=== PATIENT | female | born 1975 | race Caucasian/White ===

== ENCOUNTER → 2016-08-15 | Outpatient (REF) | payer OTHER ==
[2016-08-15 16:38] LABS: ANION GAP 8 MEQ/L (8-16); BLOOD UREA NITROGEN 9 MG/DL (7-18); CALCIUM LEVEL 8.3 MG/DL (8.5-10.1); CARBON DIOXIDE LEVEL 26 MEQ/L (21-32); CHLORIDE LEVEL 103 MEQ/L (98-107); CREATININE FOR GFR 0.78 MG/DL (0.55-1.02); GLOMERULAR FILTRATION RATE > 60.0 (>58); GLUCOSE, FASTING 104 MG/DL (70-105); POTASSIUM SERUM 3.3 MEQ/L (3.5-5.1); SODIUM LEVEL 137 MEQ/L (136-145)
== END ==
LOC: M SFHCADAM 08:41
PROVIDERS: ATTEND Physician Assistant
DX: I10 Essential (primary) hypertension (principal)

== ENCOUNTER → 2016-08-25 | Outpatient (CLI) | payer OTHER ==
--- NOTE | 2016-08-25 13:48 | REP ---
ULTRASOUND LEFT POSTERIOR CHEST WALL: Real-time sonographic evaluation of the left posterior chest wall performed at the site of the reported palpable abnormality. A dominant heterogeneous solid mass is seen measuring 7.9 x 4.5 x 5.1 cm. Another adjacent heterogeneous mass measures 4.2 x 1.8 x 3.5 cm. Findings are nonspecific. Recommend MRI with and without contrast for further evaluation. Signed by Mikal Wagoner MD 08/25/2016 05:39 P
== END ==
LOC: M RAD 11:17
PROVIDERS: ATTEND Surgery
DX: D17.1 Benign lipomatous neoplasm of skin and subcutaneous tissue of trunk (principal)

== ENCOUNTER → 2016-09-06 | Outpatient (CLI) | payer OTHER | LOC: M RAD 08:17 | PROVIDERS: ATTEND Surgery | DX: D48.5 Neoplasm of uncertain behavior of skin (principal) ==

== ENCOUNTER → 2016-09-13 | Outpatient (CLI) | payer OTHER | LOC: M PLARAD 08:06 | PROVIDERS: ATTEND Surgery | DX: D48.5 Neoplasm of uncertain behavior of skin (principal) ==

== ENCOUNTER → 2016-11-21 | Outpatient (CLI) | payer OTHER ==
[2016-11-21 18:34] LABS: MEAN CORPUSCULAR HEMOGLOBIN 29.6 pg (27.0-33.0); MEAN CORPUSCULAR HGB CONC 33.4 g/dl (32.0-36.5); MEAN CORPUSCULAR VOLUME 88.6 fl (80.0-96.0); RED CELL DISTRIBUTION WIDTH 14.5 % (11.5-14.5); WHITE BLOOD COUNT 9.8 K/mm3 (4.0-10.0)
[2016-11-21 18:51] LABS: ALBUMIN 3.9 GM/DL (3.2-5.2); ALBUMIN/GLOBULIN RATIO 1.05 (1.00-1.93); ALKALINE PHOSPHATASE 95 U/L (45-117); ALT/SGPT 22 U/L (12-78); ANION GAP 8 MEQ/L (8-16); AST/SGOT 13 U/L (15-37); BILIRUBIN,TOTAL 0.5 MG/DL (0.2-1.0); BLOOD UREA NITROGEN 9 MG/DL (7-18); CALCIUM LEVEL 8.6 MG/DL (8.5-10.1); CARBON DIOXIDE LEVEL 25 MEQ/L (21-32); CHLORIDE LEVEL 104 MEQ/L (98-107); CHOLESTEROL LEVEL 141 MG/DL (<200); CREATININE FOR GFR 0.88 MG/DL (0.55-1.02); FREE T4 1.27 NG/DL (0.76-1.46); GLOMERULAR FILTRATION RATE > 60.0 (>58); GLUCOSE, FASTING 106 MG/DL (70-105); MAGNESIUM LEVEL 2.1 MG/DL (1.8-2.4); POTASSIUM SERUM 3.5 MEQ/L (3.5-5.1); SODIUM LEVEL 137 MEQ/L (136-145); TOTAL PROTEIN 7.6 GM/DL (6.4-8.2); TRIGLYCERIDES LEVEL 82 MG/DL (<150)
== END ==
LOC: M ADAMS 09:03
PROVIDERS: ATTEND Physician Assistant
DX: I10 Essential (primary) hypertension (principal); R94.6 Abnormal results of thyroid function studies; E55.9 Vitamin D deficiency, unspecified; E87.6 Hypokalemia

== ENCOUNTER → 2016-11-25 | Outpatient (CLI) | payer OTHER ==
[~2016-11-25] MED LIST: ISOVUE-370 76% 100ML VIAL (Q9967) As Ordered ONE
== END ==
LOC: M RAD 07:50
PROVIDERS: ATTEND Surgery
DX: D48.5 Neoplasm of uncertain behavior of skin (principal)

== ENCOUNTER → 2017-01-06 | Outpatient (REF) | payer OTHER, MEDICAID | LOC: M LAB REF 17:16 | PROVIDERS: ATTEND Surgery | DX: D48.5 Neoplasm of uncertain behavior of skin (principal) ==

== ENCOUNTER → 2017-01-27 | Outpatient (CLI) | payer OTHER | LOC: M RAD 07:56 | PROVIDERS: ATTEND Surgery | DX: D48.5 Neoplasm of uncertain behavior of skin (principal); Z53.9 Procedure and treatment not carried out, unspecified reason ==

== ENCOUNTER → 2017-02-02 | Outpatient (CLI) | payer OTHER ==
--- NOTE | 2017-02-03 07:18 | REP ---
Clinical: Subcutaneous/skin mass. Technique: Axial noncontrast images from the thoracic inlet to the upper abdomen with coronal and sagittal re-formations. Findings: A large, elongated mass lesion is identified in the subcutaneous tissue of the posterior left back / paraspinous region measuring 26 cm in craniocaudal length and 9.9 x 4.7 cm maximal transverse and AP diameter. Lesion is almost entirely made up of adipose tissue with scattered septations and small encased rim calcified components and is most compatible with lipoma. The surrounding adjacent subcutaneous tissues are relatively normal and without significant infiltration and no evidence for adenopathy. The bilateral lung bradshaw are well-aerated, symmetric and clear. No consolidation, significant nodule or mass lesion identified. No pleural effusion/reaction or pneumothorax. Tracheobronchial tree is patent. Mediastinum demonstrates normal thoracic aorta and heart/pericardium. No significant axillary, hilar, or mediastinal adenopathy. Musculoskeletal structures are intact and normal. Upper abdomen demonstrates normal bilateral adrenal glands. Impression: 1. 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 Lesion appears well demarcated without surrounding infiltration or adenopathy in the adjacent subcutaneous tissues. 2. Remainder of the noncontrast chest CT appears normal. Signed by Victorino Mansfield MD 02/02/2017 10:07 A
== END ==
LOC: M RAD 09:38
PROVIDERS: ATTEND Surgery
DX: D48.5 Neoplasm of uncertain behavior of skin (principal)

== ENCOUNTER → 2017-07-31 | Outpatient (CLI) | payer OTHER, MEDICAID ==
[2017-07-31 17:15] LABS: BASO % 0.4 % (0.0-1.0); EOS # 0.1 10^3/uL (0.0-0.50); EOS % 1.7 % (0.0-3.0); HEMATOCRIT 36.7 % (36.0-47.0); HEMOGLOBIN 12.3 g/dl (12.0-16.0); IMMATURE GRANULOCYTE % 0.4 % (0-3.0); LYMPH # 2.2 10^3/uL (1.5-4.5); LYMPH % 25.7 % (24.0-44.0); MEAN CORPUSCULAR HEMOGLOBIN 30.6 pg (27.0-33.0); MEAN CORPUSCULAR HGB CONC 33.5 g/dl (32.0-36.5); MEAN CORPUSCULAR VOLUME 91.3 fl (80.0-96.0); MONO # 0.5 10^3/uL (0.0-0.8); MONO % 5.7 % (0.0-5.0); NEUTROPHILS # 5.6 10^3/uL (1.8-7.7); NEUTROPHILS % 66.1 % (36.0-66.0); PLATELET COUNT, AUTOMATED 257 10^3/uL (150-450); RED BLOOD COUNT 4.02 10^6/uL (4.00-5.40); WHITE BLOOD COUNT 8.4 10^3/uL (4.0-10.0)
[2017-07-31 17:29] LABS: ANION GAP 8 MEQ/L (8-16); BLOOD UREA NITROGEN 12 MG/DL (7-18); CALCIUM LEVEL 9.3 MG/DL (8.5-10.1); CARBON DIOXIDE LEVEL 26 MEQ/L (21-32); CHLORIDE LEVEL 103 MEQ/L (98-107); CREATININE FOR GFR 0.78 MG/DL (0.55-1.30); GLOMERULAR FILTRATION RATE > 60.0 (>58); GLUCOSE, FASTING 104 MG/DL (70-100); POTASSIUM SERUM 3.4 MEQ/L (3.5-5.1); SODIUM LEVEL 137 MEQ/L (136-145)
== END ==
LOC: M ADAMS 08:57
DX: R22.2 Localized swelling, mass and lump, trunk (principal); F40.01 Agoraphobia with panic disorder
CPT/HCPCS: 82088

== ENCOUNTER → 2017-08-01 | Outpatient (REF) | payer OTHER ==
[2017-08-01 13:35] LABS: ALBUMIN/GLOBULIN RATIO 1.21 (1.00-1.93); ALKALINE PHOSPHATASE 86 U/L (45-117); ALT/SGPT 17 U/L (12-78); ANION GAP 9 MEQ/L (8-16); AST/SGOT 10 U/L (7-37); BILIRUBIN,TOTAL 0.4 MG/DL (0.2-1.0); BLOOD UREA NITROGEN 12 MG/DL (7-18); CALCIUM LEVEL 8.8 MG/DL (8.5-10.1); CARBON DIOXIDE LEVEL 26 MEQ/L (21-32); CHLORIDE LEVEL 102 MEQ/L (98-107); CHOLESTEROL LEVEL 128 MG/DL (<200); CHOLESTEROL RISK RATIO 3.121 (<5); CREATININE FOR GFR 0.82 MG/DL (0.55-1.30); GLOMERULAR FILTRATION RATE > 60.0 (>58); GLUCOSE, FASTING 98 MG/DL (70-100); HDL CHOLESTEROL 41 MG/DL (>40); LDL CHOLESTEROL 70.2 MG/DL (<100); MAGNESIUM LEVEL 2.3 MG/DL (1.8-2.4); NON-HDL-C 87 MG/DL; POTASSIUM SERUM 3.4 MEQ/L (3.5-5.1); SODIUM LEVEL 137 MEQ/L (136-145); TOTAL PROTEIN 7.3 GM/DL (6.4-8.2); TRIGLYCERIDES LEVEL 84 MG/DL (<150)
== END ==
LOC: M SFHCADAM 08:03
DX: E87.6 Hypokalemia (principal); I11.9 Hypertensive heart disease without heart failure; R94.6 Abnormal results of thyroid function studies

== ENCOUNTER → 2017-08-01 | Outpatient (REF) | payer OTHER ==
[2017-08-01 13:13] LABS: INR 1.01; PROTHROMBIN TIME 13.4 SECONDS (12.4-14.5)
== END ==
LOC: M LABDRWAD 12:18
DX: R22.2 Localized swelling, mass and lump, trunk (principal); F40.01 Agoraphobia with panic disorder; E87.6 Hypokalemia; I11.9 Hypertensive heart disease without heart failure; R94.6 Abnormal results of thyroid function studies
CPT/HCPCS: 84244

== ENCOUNTER → 2017-08-05 | Outpatient (CLI) | payer OTHER ==
[2017-08-10 00:06] LABS: DOPAMINE PLASMA <30 pg/mL (0-48); EPINEPHRINE PLASMA 350 pg/mL (0-62); NOREPINEPHRINE PLASMA 808 pg/mL (0-874)
== END ==
LOC: M LAB 08:01
DX: F40.01 Agoraphobia with panic disorder (principal); R22.2 Localized swelling, mass and lump, trunk
CPT/HCPCS: 36415

== ENCOUNTER → 2017-08-08 | Outpatient (REF) | payer OTHER | LOC: M LAB REF 10:23 | DX: R22.2 Localized swelling, mass and lump, trunk (principal); F40.01 Agoraphobia with panic disorder | CPT/HCPCS: 82384 ==

== ENCOUNTER → 2017-08-17 | Outpatient (CLI) | payer OTHER, MEDICAID | LOC: M LAB 08:01 | DX: I10 Essential (primary) hypertension (principal) ==

== ENCOUNTER → 2017-08-18 | Outpatient (CLI) | payer OTHER, MEDICAID ==
[2017-08-24 00:06] LABS: METANEPHRINE PLASMA 92 pg/mL (0-62); NORMETANEPHRINE PLASMA 171 pg/mL (0-145)
== END ==
LOC: M LAB 06:41
DX: I10 Essential (primary) hypertension (principal)
CPT/HCPCS: 83835

== ENCOUNTER → 2017-09-11 | Outpatient (REF) | payer OTHER ==
[2017-09-11 18:00] LABS: ANION GAP 8 MEQ/L (8-16); BLOOD UREA NITROGEN 12 MG/DL (7-18); CALCIUM LEVEL 8.6 MG/DL (8.5-10.1); CARBON DIOXIDE LEVEL 26 MEQ/L (21-32); CHLORIDE LEVEL 106 MEQ/L (98-107); CREATININE FOR GFR 0.77 MG/DL (0.55-1.30); FREE T4 1.13 NG/DL (0.76-1.46); GLOMERULAR FILTRATION RATE > 60.0 (>58); GLUCOSE, FASTING 102 MG/DL (70-100); POTASSIUM SERUM 3.9 MEQ/L (3.5-5.1); SODIUM LEVEL 140 MEQ/L (136-145)
[2017-09-11 18:31] LABS: CREATININE, URINE 67.8 MG/DL; MALB URINE SIEMENS 6.7 MG/L; MAU/CREAT RATIO 9.8 MCG/MG (0.0-30.0)
== END ==
LOC: M SFHCADAM 08:18
DX: E87.6 Hypokalemia (principal); I11.9 Hypertensive heart disease without heart failure

== ENCOUNTER → 2017-09-27 | Outpatient (CLI) | payer OTHER | LOC: M RAD 10:59 | DX: R22.2 Localized swelling, mass and lump, trunk (principal) ==

== ENCOUNTER → 2017-10-03 | Outpatient (CLI) | payer OTHER | LOC: M RAD 16:05 | DX: R22.2 Localized swelling, mass and lump, trunk (principal); F40.01 Agoraphobia with panic disorder | CPT/HCPCS: 71250 ==

== ENCOUNTER → 2017-10-22 | Outpatient (CLI) | payer OTHER, MEDICAID ==
[2017-10-22 17:59] LABS: FREE T4 1.16 NG/DL (0.76-1.46)
[2017-10-24 10:41] LABS: THYROID PEROXIDASE ANTIBODY < 28.0 U/ML (<60.0)
== END ==
LOC: M ADAMS 08:23
DX: I10 Essential (primary) hypertension (principal); E04.0 Nontoxic diffuse goiter
CPT/HCPCS: 84443

== ENCOUNTER → 2017-12-04 | Outpatient (REF) | payer OTHER, MEDICAID ==
[2017-12-04 17:20] LABS: ANION GAP 9 MEQ/L (8-16); BLOOD UREA NITROGEN 12 MG/DL (7-18); CARBON DIOXIDE LEVEL 27 MEQ/L (21-32); CHLORIDE LEVEL 101 MEQ/L (98-107); CREATININE FOR GFR 0.78 MG/DL (0.55-1.30); GLOMERULAR FILTRATION RATE > 60.0 (>58); GLUCOSE, FASTING 94 MG/DL (70-100); POTASSIUM SERUM 3.8 MEQ/L (3.5-5.1); SODIUM LEVEL 137 MEQ/L (136-145)
[2017-12-04 17:34] LABS: CREATININE, URINE 59.6 MG/DL; MALB URINE SIEMENS 5.7 MG/L; MAU/CREAT RATIO 9.5 MCG/MG (0.0-30.0)
== END ==
LOC: M LAB REF 09:31
DX: I10 Essential (primary) hypertension (principal)

== ENCOUNTER → 2017-12-05 | Outpatient (CLI) | payer OTHER | LOC: M LAB 06:40 | DX: I10 Essential (primary) hypertension (principal) | CPT/HCPCS: 84244 ==

== ENCOUNTER → 2018-01-04 | Outpatient (REF) | payer OTHER, MEDICAID ==
[2018-01-09 14:19] LABS: CORTISOL SALIVARY 0.024 ug/dL (.)
== END ==
LOC: M LAB REF 09:15
DX: I10 Essential (primary) hypertension (principal)

== ENCOUNTER → 2018-02-15 | Outpatient (CLI) | payer OTHER, MEDICAID | LOC: M ADAMS 14:21 | DX: S60.221A Contusion of right hand, initial encounter (principal); X58.XXXA Exposure to other specified factors, initial encounter; Y92.9 Unspecified place or not applicable | CPT/HCPCS: 73130 ==

== ENCOUNTER → 2018-05-11 | Outpatient (CLI) | payer MEDICARE, OTHER ==
[2018-05-11 08:29] LABS: FREE T4 1.29 NG/DL (0.76-1.46); THYROID STIMULATING HORMONE 4.46 uIU/ML (0.358-3.740)
[2018-05-19 08:06] LABS: METANEPHRINE PLASMA 77 pg/mL (0-62); NORMETANEPHRINE PLASMA 111 pg/mL (0-145)
== END ==
LOC: M LAB 07:11
PROVIDERS: ATTEND Nurse Practitioner Family
DX: E04.0 Nontoxic diffuse goiter (principal); I10 Essential (primary) hypertension

== ENCOUNTER → 2018-06-18 | Outpatient (CLI) | payer MEDICARE, OTHER ==
--- NOTE | 2018-06-18 17:29 | REP ---
Clinical: Trauma/fall with right ankle pain . Technique: AP, lateral, bilateral oblique views. Findings: No acute fracture or dislocation. Skeletal structures and joint spaces are intact and normal. Ankle mortise appears stable. No subcutaneous emphysema or radiodense foreign body. Impression: Normal right ankle radiograph series. No acute fracture dislocation. Electronically Signed by Victorino Mansfield MD 06/18/2018 05:20 P
== END ==
LOC: M ADAMS 16:54
PROVIDERS: ATTEND Physician Assistant Medical
DX: M25.571 Pain in right ankle and joints of right foot (principal)

== ENCOUNTER → 2018-07-02 | Outpatient (CLI) | payer MEDICARE, OTHER | LOC: M ADAMS 10:55 | PROVIDERS: ATTEND Physician Assistant | DX: I10 Essential (primary) hypertension (principal); E03.9 Hypothyroidism, unspecified; F41.9 Anxiety disorder, unspecified; E55.9 Vitamin D deficiency, unspecified ==

== ENCOUNTER → 2018-07-02 | Outpatient (REF) | payer MEDICARE, OTHER ==
[2018-07-02 17:28] LABS: ALBUMIN 3.9 GM/DL (3.2-5.2); ALT/SGPT 23 U/L (12-78); BILIRUBIN,TOTAL 0.3 MG/DL (0.2-1.0); BLOOD UREA NITROGEN 9 MG/DL (7-18); CALCIUM LEVEL 8.4 MG/DL (8.5-10.1); CARBON DIOXIDE LEVEL 27 MEQ/L (21-32); CHLORIDE LEVEL 102 MEQ/L (98-107); GLOMERULAR FILTRATION RATE > 60.0 (>58); GLUCOSE, FASTING 98 MG/DL (70-100); POTASSIUM SERUM 3.8 MEQ/L (3.5-5.1); SODIUM LEVEL 136 MEQ/L (136-145); TOTAL PROTEIN 7.4 GM/DL (6.4-8.2)
[2018-07-02 17:37] LABS: CREATININE, URINE 17.2 MG/DL; MALB URINE SIEMENS 7.1 MG/L; MAU/CREAT RATIO 41.2 MCG/MG (0.0-30.0)
[2018-07-03 09:47] LABS: TOTAL 25(OH) VITAMIN D 36.6 NG/ML (30.0-100.0)
== END ==
LOC: M SFHCADAM 08:29
PROVIDERS: ATTEND Physician Assistant
DX: I10 Essential (primary) hypertension (principal); E03.9 Hypothyroidism, unspecified; F41.9 Anxiety disorder, unspecified; E55.9 Vitamin D deficiency, unspecified

== ENCOUNTER → 2018-07-07 | Outpatient (REF) | payer MEDICARE, OTHER, MEDICAID ==
[2018-07-07 13:07] LABS: CREATININE, URINE 35.4 MG/DL; MALB URINE SIEMENS < 5.0 MG/L; MAU/CREAT RATIO 14.1 MCG/MG (0.0-30.0)
== END ==
LOC: M SFHCADAM 12:05
PROVIDERS: ATTEND Physician Assistant
DX: R80.9 Proteinuria, unspecified (principal)

== ENCOUNTER → 2018-10-04 | Outpatient (CLI) | payer MEDICARE, OTHER, MEDICAID ==
--- NOTE | 2018-06-15 12:43 | REP ---
CT study of the chest with IV contrast: History: Chest wall mass. Technique: The patient apparently has a great deal of anxiety regarding the process of this examination. On today's attempt, an IV was successfully started and a lead software developer view was acquired. At this point and before any intravenous contrast was injected, the patient declined to continue the exam was aborted. The lead software developer view shows no abnormality. Electronically Signed by Doug Arcos MD 06/15/2018 12:34 P
--- NOTE | 2018-10-04 11:35 | REP ---
CT of the chest with IV contrast: Comparison is 02/02/2017. The patient has a known large lipoma in the posterior chest wall. The patient is scanned prone on the study today. The known large posterior subcutaneous chest wall lipoma is again identified. Lipoma today maximally measures 23 cm craniocaudad by 11 cm transversely by 4.7 cm AP. The There are septations within this lipoma as previously. Additionally, there are ring-shaped calcifications within the lipoma as previously, likely fat necrosis. The soft tissue structures adjacent to the lipoma are unremarkable as previously. The lung bradshaw are clear. There is no mediastinal or hilar lymph node enlargement. There is no axillary lymph node enlargement. The thoracic aorta is unremarkable. Cardiac size is normal. The visualized upper abdominal contents are unremarkable. Impression: A large lipoma in the subcutaneous fat in the posterior chest wall containing septations and ring-shaped calcifications , likely representing fat necrosis. No significant interval change. Electronically Signed by Mikal Vincent MD 10/04/2018 11:27 A
== END ==
LOC: M RAD 04-11 14:37
PROVIDERS: ATTEND Nurse Practitioner Family
DX: R22.2 Localized swelling, mass and lump, trunk (principal)
CPT/HCPCS: 71260; Q9967

== ENCOUNTER → 2019-01-21 | Outpatient (CLI) | payer MEDICARE, OTHER, MEDICAID ==
[2019-01-21 19:48] LABS: FREE T4 1.1 NG/DL (0.76-1.46); THYROID STIMULATING HORMONE 4.65 uIU/ML (0.358-3.740)
== END ==
LOC: M ADAMS 01-20 08:22
PROVIDERS: ATTEND Internal Medicine Endocrinology, Diabetes & Metabolism
DX: I10 Essential (primary) hypertension (principal)

== ENCOUNTER → 2019-03-18 | Outpatient (CLI) | payer MEDICARE, MEDICAID ==
[2019-03-18 18:16] LABS: BLOOD UREA NITROGEN 10 MG/DL (7-18); CARBON DIOXIDE LEVEL 27 MEQ/L (21-32); CHLORIDE LEVEL 103 MEQ/L (98-107); CREATININE FOR GFR 0.82 MG/DL (0.55-1.30); FREE T4 1.19 NG/DL (0.76-1.46); GLOMERULAR FILTRATION RATE > 60.0 (>58); GLUCOSE, FASTING 98 MG/DL (70-100); POTASSIUM SERUM 4.1 MEQ/L (3.5-5.1); SODIUM LEVEL 137 MEQ/L (136-145)
== END ==
LOC: M ADAMS 08:27
PROVIDERS: ATTEND Physician Assistant
DX: I10 Essential (primary) hypertension (principal); E03.9 Hypothyroidism, unspecified

== ENCOUNTER → 2019-03-21 | Outpatient (CLI) | payer MEDICARE, MEDICAID ==
[~2019-03-21] MED LIST changes: +GASTROGRAFIN SOLUTION 30ML (Q9963) As Ordered ONE
--- NOTE | 2019-03-21 11:56 | REP ---
Clinical: Posterior chest wall lipoma. Technique: Axial contrast enhanced images from the thoracic inlet to the upper abdomen with coronal and sagittal re-formations using 100 ml Isovue 370 intravenous contrast material. Comparison: 10/04/2018. Findings: A large complex lipoma containing multiple septations and scattered ring-like calcifications suggesting elements of chronic fat necrosis is again identified and essentially unchanged along the left posterior paraspinal subcutaneous tissue extending from approximately T5 to L2 level measuring approximately 24 x 11 x 6.3 cm. Lipoma appears relatively well encapsulated and possibly arising from or involving the left trapezius muscle. The bilateral lung bradshaw are well-aerated and clear. No consolidation, nodule or mass. No pleural effusion. No pneumothorax. Mediastinum demonstrates normal thoracic aorta, pulmonary vasculature and heart/pericardium. No adenopathy. Osseous structures appear intact and normal. Impression: 1. Large stable complex lipoma along the left paraspinal posterior musculature and subcutaneous tissue possibly arising from or involving the left trapezius muscle. 2. No acute mediastinal or pleuroparenchymal process. Electronically Signed by Victorino Mansfield MD 03/21/2019 11:49 A
--- NOTE | 2019-03-21 11:57 | REP ---
Clinical: Lipoma. Technique: Axial contrast enhanced images from the lung bases to the pubic symphysis using oral (per protocol) and 100 ml Isovue 370 intravenous contrast material with coronal and sagittal re-formations. Precontrast and delayed images of the abdomen obtained. Comparison: 10/03/2017. Findings: The liver, spleen, pancreas, gallbladder, bilateral adrenal glands and kidneys are normal. The enteric system is without obstruction or acute inflammatory process. Pelvis demonstrates normal bladder and age-appropriate uterus/adnexa. No ascites. No free air. No adenopathy. Abdominal aorta and vasculature normal. Osseous structures are intact. A large complex lipoma containing multiple septations and scattered ring-like calcifications suggesting elements of chronic fat necrosis is again identified and essentially unchanged along the left posterior paraspinal subcutaneous tissue extending from approximately T5 to L2 level measuring approximately 24 x 11 x 6.3 cm. Lipoma appears relatively well encapsulated and possibly arising from or involving the left trapezius muscle. Impression: 1. Stable large complex lipoma along the left paraspinous musculature. Electronically Signed by Victorino Mansfield MD 03/21/2019 11:49 A
== END ==
LOC: M RAD 09:29
DX: D17.1 Benign lipomatous neoplasm of skin and subcutaneous tissue of trunk (principal)
CPT/HCPCS: 71260; 74178; Q9963; Q9967

== ENCOUNTER → 2020-01-30 | Outpatient (REF) | payer MEDICARE, MEDICAID ==
[2020-01-30 14:02] LABS: FREE T4 1.16 NG/DL (0.76-1.46); THYROID STIMULATING HORMONE 4.34 uIU/ML (0.358-3.740)
== END ==
LOC: M LABDRWAD 12:46
PROVIDERS: ATTEND Internal Medicine Endocrinology, Diabetes & Metabolism
DX: E04.0 Nontoxic diffuse goiter (principal)

== ENCOUNTER → 2020-03-26 | Outpatient (CLI) | payer MEDICARE, MEDICAID ==
[~2020-03-26] MED LIST changes: -ISOVUE-370 76% 100ML VIAL (Q9967) As Ordered ONE; +ISOVUE-370 76% 100ML VIAL As Ordered ONE
--- NOTE | 2020-03-26 12:17 | REP ---
INDICATION: MASS OF CHEST WALL FILE ROOM. COMPARISON: CT 03/21/2019 TECHNIQUE: Bolus 100 mL Isovue 370 and scanning through the chest with prone technique. Coronal and sagittal reconstructions. FINDINGS: Lung bradshaw remain well inflated and clear. The heart, mediastinal and hilar contents were grossly unremarkable. I see no hiatal hernia. No adenopathy in the mediastinum, pawan or axilla. Bone windows show thoracic spine, sternum manubrium clavicles and visualized ribs all intact. Portion of shoulders included also unremarkable. In the posterior soft tissues of the back centered to the left of midline and arising from inferior aspect of the left trapezius muscle is a large complex lipoma which is not included in its entirety on the chest portion of this examination. There are multiple rim calcifications with course features within this lesion suggesting fat necrosis. No other soft tissue densities within. Maximum transverse diameter 10.3 cm by 5.3 cm AP. Maximum vertical extent on the chest CT is 18 cm. IMPRESSION: 1. Very large lipomatous lesion in the posterior back appearing to arise from the lower aspect of the trapezius muscle at about the T5-6 level. It extends at least 18 cm vertically with its inferior margin off the field and has transverse diameter 10 0.3 cm by 5.3 cm AP. This is unchanged in appearance from a 03/21/2019. No other findings. <Electronically signed by Piotr Lim > 03/26/20 [id number]
--- NOTE | 2020-03-26 12:31 | REP ---
INDICATION: MASS OF CHEST WALL FILE ROOM. COMPARISON: CT abdomen pelvis 03/21/2019, CT chest today TECHNIQUE: Oral Gastrografin mixture 10 mL in 290 mL of flavored water for 2 doses per our bowel contrast protocol with scanning through the abdomen followed by bolus of 100 mL Isovue 370 scanning the abdomen and pelvis with coronal and sagittal reconstructions. Patient was scanned prone FINDINGS: CT abdomen a large lipomatous mass in the posterior soft tissues of the back is seen to its inferior extent now. Combine with the chest CT images is overall length is at least 21 cm appears to arise from the trapezius. It extends across the midline. It abuts the muscular fascia. The as a sharply defined capsule and coarse rim calcifications within consistent with the chronic fat necrosis. When measured at the same level of see only a 2 mm difference in transverse diameter compared to last year's CT. There are no new features or calcifications. There are no other subcutaneous masses. The lung bases were clear there is no hiatal hernia. The liver, gallbladder, spleen, pancreas, adrenal glands and kidneys are unchanged and unremarkable. The aorta is intact. No periaortic, retroperitoneal or mesenteric lymphadenopathy. There is no ascites or free air in the abdomen and pelvis. Colon and small bowel loops unremarkable. Bone windows show lumbar and lower thoracic levels without any acute finding. Ribs intact. CT pelvis: Sacrum, pelvis and hips show no acute finding there is sacralization of the transverse process of L5 on the right is anatomic variation and unchanged. See no pelvic mass or free fluid. Uterus is a anteverted, slightly deviated to the right but not enlarged. No pelvic mass. Small bowel loops and colon in the pelvis unremarkable. Bladder intact no ventral or inguinal hernia. IMPRESSION: 1. A 21 x 10 x 5 cm complex lipoma with sharply defined capsular margins in the posterior left back arising from from the more inferior aspect of the left trapezius muscle extending down to the level of L2. Total vertical measurement was stitched together by the combination of the CT abdomen and pelvis as it is not included in its entirety in either field of view. No significant interval change in size or character to this lesion. 2. No intra-abdominal or pelvic pathology identified. Bones grossly intact. No other subcutaneous mass lesion. <Electronically signed by Piotr Lim > 03/26/20 [id number]
== END ==
LOC: M RAD 08:35
PROVIDERS: ATTEND Nurse Practitioner Family
DX: D49.2 Neoplasm of unspecified behavior of bone, soft tissue, and skin (principal)
CPT/HCPCS: 71260; 74178; Q9963; Q9967

== ENCOUNTER → 2020-03-28 | Outpatient (REF) | payer MEDICARE, MEDICAID ==
[2020-03-28 14:05] LABS: HEMATOCRIT 36.8 % (36.0-47.0); HEMOGLOBIN 12.3 g/dl (12.0-15.5); MEAN CORPUSCULAR HEMOGLOBIN 30.9 pg (27.0-33.0); MEAN CORPUSCULAR HGB CONC 33.4 g/dl (32.0-36.5); MEAN CORPUSCULAR VOLUME 92.5 fl (80.0-96.0); PLATELET COUNT, AUTOMATED 281 10^3/uL (150-450); RED BLOOD COUNT 3.98 10^6/uL (4.00-5.40)
[2020-03-28 14:46] LABS: ALBUMIN 3.9 GM/DL (3.2-5.2); ALT/SGPT 22 U/L (12-78); BILIRUBIN,TOTAL 0.3 MG/DL (0.2-1.0); BLOOD UREA NITROGEN 8 MG/DL (7-18); CALCIUM LEVEL 9.3 MG/DL (8.5-10.1); CARBON DIOXIDE LEVEL 28 MEQ/L (21-32); CHLORIDE LEVEL 104 MEQ/L (98-107); CHOLESTEROL LEVEL 161 MG/DL (<200); CHOLESTEROL RISK RATIO 3.354 (<5); CREATININE FOR GFR 0.88 MG/DL (0.55-1.30); FREE T4 1.33 NG/DL (0.76-1.46); GLOMERULAR FILTRATION RATE > 60.0 (>58); GLUCOSE, FASTING 95 MG/DL (70-100); HDL CHOLESTEROL 48 MG/DL (>40); LDL CHOLESTEROL 95 MG/DL (<100); NON-HDL-C 113 MG/DL; SODIUM LEVEL 138 MEQ/L (136-145); TOTAL PROTEIN 7.4 GM/DL (6.4-8.2); TRIGLYCERIDES LEVEL 90 MG/DL (<150)
[2020-03-28 14:54] LABS: MALB URINE SIEMENS < 5.0 MG/L; MAU/CREAT RATIO 26.3 MCG/MG (0.0-30.0)
== END ==
LOC: M SFHCADAM 08:09
PROVIDERS: ATTEND Physician Assistant
DX: I11.9 Hypertensive heart disease without heart failure (principal); E03.9 Hypothyroidism, unspecified; D17.1 Benign lipomatous neoplasm of skin and subcutaneous tissue of trunk

== ENCOUNTER → 2020-09-08 | Outpatient (CLI) | payer MEDICARE, MEDICAID | LOC: M LABSMTC 09:45 | PROVIDERS: ATTEND Surgery | DX: Z01.818 Encounter for other preprocedural examination (principal); Z20.822 Contact with and (suspected) exposure to COVID-19 ==

== ENCOUNTER → 2020-10-13 | Outpatient (CLI) | payer MEDICARE, MEDICAID ==
[2020-10-13 17:20] LABS: BLOOD UREA NITROGEN 9 MG/DL (7-18); CARBON DIOXIDE LEVEL 27 MEQ/L (21-32); CHLORIDE LEVEL 109 MEQ/L (98-107); CREATININE FOR GFR 0.79 MG/DL (0.55-1.30); GLOMERULAR FILTRATION RATE > 60.0 (>58); GLUCOSE, FASTING 130 MG/DL (70-100); POTASSIUM SERUM 4.2 MEQ/L (3.5-5.1); SODIUM LEVEL 141 MEQ/L (136-145)
== END ==
LOC: M WHC 11:34
PROVIDERS: ATTEND Physician Assistant
DX: R60.0 Localized edema (principal)
CPT/HCPCS: 36415; 80048; 85027; G0463

== ENCOUNTER → 2020-10-13 | Outpatient (REF) | payer MEDICARE, MEDICAID ==
[2020-10-13 12:44] LABS: HEMATOCRIT 34.5 % (36.0-47.0); HEMOGLOBIN 11.1 g/dl (12.0-15.5); MEAN CORPUSCULAR HEMOGLOBIN 30.6 pg (27.0-33.0); MEAN CORPUSCULAR HGB CONC 32.2 g/dl (32.0-36.5); PLATELET COUNT, AUTOMATED 269 10^3/uL (150-450); RED BLOOD COUNT 3.63 10^6/uL (4.00-5.40)
== END ==
LOC: M LABDRWAD 12:14
PROVIDERS: ATTEND Nurse Practitioner Adult Health
DX: D17.1 Benign lipomatous neoplasm of skin and subcutaneous tissue of trunk (principal)

== ENCOUNTER → 2021-01-30 | Outpatient (REF) | payer MEDICARE, MEDICAID ==
[2021-01-30 13:42] LABS: FREE T4 1.12 NG/DL (0.76-1.46); THYROID STIMULATING HORMONE 3.55 uIU/ML (0.358-3.740)
== END ==
LOC: M LABDRWAD 12:35
PROVIDERS: ATTEND Nurse Practitioner Family
DX: E04.0 Nontoxic diffuse goiter (principal)

== ENCOUNTER → 2021-10-14 | Outpatient (REF) | payer MEDICARE, MEDICAID ==
[2021-10-14 12:16] LABS: HEMATOCRIT 36.1 % (36.0-47.0); HEMOGLOBIN 11.9 g/dl (12.0-15.5); MEAN CORPUSCULAR HEMOGLOBIN 29.8 pg (27.0-33.0); MEAN CORPUSCULAR VOLUME 90.3 fl (80.0-96.0); PLATELET COUNT, AUTOMATED 267 10^3/uL (150-450); WHITE BLOOD COUNT 8.2 10^3/uL (4.0-10.0)
[2021-10-14 12:49] LABS: ALBUMIN 3.7 GM/DL (3.2-5.2); ALT/SGPT 25 U/L (12-78); BILIRUBIN,TOTAL 0.3 MG/DL (0.2-1.0); BLOOD UREA NITROGEN 9 MG/DL (7-18); CALCIUM LEVEL 9.5 MG/DL (8.5-10.1); CARBON DIOXIDE LEVEL 25 MEQ/L (21-32); CHLORIDE LEVEL 105 MEQ/L (98-107); CHOLESTEROL LEVEL 160 MG/DL (<200); CHOLESTEROL RISK RATIO 3.555 (<5); FREE T4 1.15 NG/DL (0.76-1.46); GLOMERULAR FILTRATION RATE > 60.0 (>58); GLUCOSE, FASTING 103 MG/DL (70-100); HDL CHOLESTEROL 45 MG/DL (>40); LDL CHOLESTEROL 96 MG/DL (<100); NON-HDL-C 115 MG/DL; POTASSIUM SERUM 3.7 MEQ/L (3.5-5.1); SODIUM LEVEL 139 MEQ/L (136-145); TOTAL PROTEIN 7.4 GM/DL (6.4-8.2); TRIGLYCERIDES LEVEL 94 MG/DL (<150)
[2021-10-14 12:51] LABS: TOTAL 25(OH) VITAMIN D 39.1 NG/ML (30.0-100.0)
[2021-10-14 13:03] LABS: CREATININE, URINE 19.3 MG/DL; MALB URINE SIEMENS 6.2 MG/L; MAU/CREAT RATIO 32.1 MCG/MG (0.0-30.0)
[2021-10-14 13:22] LABS: HEMOGLOBIN A1c 5.3 %
== END ==
LOC: M SFHCADAM 08:04
PROVIDERS: ATTEND Physician Assistant
DX: I10 Essential (primary) hypertension (principal); E03.9 Hypothyroidism, unspecified; I11.9 Hypertensive heart disease without heart failure; E55.9 Vitamin D deficiency, unspecified; Z13.1 Encounter for screening for diabetes mellitus

== ENCOUNTER → 2022-04-13 | Outpatient (REF) | payer MEDICARE, MEDICAID ==
[2022-04-13 14:27] LABS: BLOOD UREA NITROGEN 12 MG/DL (9-23); CALCIUM LEVEL 8.8 MG/DL (8.5-10.1); CARBON DIOXIDE LEVEL 24 MMOL/L (20-31); CHLORIDE LEVEL 102 MMOL/L (98-107); CREATININE FOR GFR 0.77 MG/DL (0.55-1.30); FREE T4 1.07 NG/DL (0.89-1.76); GLOMERULAR FILTRATION RATE > 60.0 (>58); GLUCOSE, FASTING 105 MG/DL (60-100); POTASSIUM SERUM 3.8 MMOL/L (3.5-5.1); SODIUM LEVEL 137 MMOL/L (136-145); THYROID STIMULATING HORMONE 5.684 uIU/ML (0.55-4.78)
== END ==
LOC: M SFHCADAM 07:48
PROVIDERS: ATTEND Physician Assistant
DX: E03.9 Hypothyroidism, unspecified (principal); I10 Essential (primary) hypertension

== ENCOUNTER → 2022-07-07 | Outpatient (CLI) | payer MEDICARE, MEDICAID | LOC: M WHC 10:04 | PROVIDERS: ATTEND Physician Assistant | DX: Z12.31 Encounter for screening mammogram for malignant neoplasm of breast (principal); R92.2 Inconclusive mammogram; Z80.3 Family history of malignant neoplasm of breast ==

== ENCOUNTER → 2022-07-21 | Outpatient (CLI) | payer MEDICARE, MEDICAID | LOC: M WHC 13:00 | PROVIDERS: ATTEND Physician Assistant | DX: R92.2 Inconclusive mammogram (principal) | CPT/HCPCS: 76641; 77066; G0279 ==

== ENCOUNTER → 2022-10-19 | Outpatient (REF) | payer MEDICARE, MEDICAID ==
[2022-10-19 13:40] LABS: BASO % 0.3 % (0.0-1.0); EOS # 0.3 10^3/uL (0.0-0.5); EOS % 3.6 % (0.0-3.0); HEMATOCRIT 35.4 % (36.0-47.0); HEMOGLOBIN 11.7 g/dl (12.0-15.5); LYMPH # 2.7 10^3/uL (1.5-5.0); LYMPH % 35.7 % (24.0-44.0); MEAN CORPUSCULAR HEMOGLOBIN 30.2 pg (27.0-33.0); MEAN CORPUSCULAR HGB CONC 33.1 g/dl (32.0-36.5); MEAN CORPUSCULAR VOLUME 91.2 fl (80.0-96.0); MONO # 0.4 10^3/uL (0.0-0.8); MONO % 5.8 % (2.0-8.0); NEUTROPHILS # 4.1 10^3/uL (1.5-8.5); NEUTROPHILS % 54.2 % (36.0-66.0); PLATELET COUNT, AUTOMATED 260 10^3/uL (150-450); RED BLOOD COUNT 3.88 10^6/uL (4.00-5.40); WHITE BLOOD COUNT 7.6 10^3/uL (4.0-10.0)
[2022-10-19 14:10] LABS: HEMOGLOBIN A1c 5.4 % (4.0-6.0)
[2022-10-19 14:13] LABS: ALBUMIN 3.6 G/DL (3.2-5.2); ALKALINE PHOSPHATASE 107 U/L (46-116); ALT/SGPT 19 U/L (7.0-40); AST/SGOT 15 U/L (<34); BILIRUBIN,TOTAL 0.4 MG/DL (0.3-1.2); BLOOD UREA NITROGEN 13 MG/DL (9-23); CALCIUM LEVEL 8.7 MG/DL (8.5-10.1); CARBON DIOXIDE LEVEL 26 MMOL/L (20-31); CHLORIDE LEVEL 103 MMOL/L (98-107); CHOLESTEROL LEVEL 150 MG/DL (<200); CHOLESTEROL RISK RATIO 3.95 (<5); CREATININE FOR GFR 0.83 MG/DL (0.55-1.30); FREE T4 1.04 NG/DL (0.89-1.76); GLOMERULAR FILTRATION RATE > 60.0 (>58); GLUCOSE, FASTING 98 MG/DL (60-100); HDL CHOLESTEROL 37.9 MG/DL (>40); LDL CHOLESTEROL 90.7 MG/DL (<100); NON-HDL-C 112.1 MG/DL; SODIUM LEVEL 137 MMOL/L (136-145); TRIGLYCERIDES LEVEL 107 MG/DL (<150)
[2022-10-19 14:14] LABS: TOTAL 25(OH) VITAMIN D 42.7 NG/ML (20.0-100.0)
== END ==
LOC: M SFHCADAM 07:45
PROVIDERS: ATTEND Physician Assistant
DX: E03.9 Hypothyroidism, unspecified (principal); I10 Essential (primary) hypertension; F41.9 Anxiety disorder, unspecified; R73.01 Impaired fasting glucose; Z13.220 Encounter for screening for lipoid disorders; E66.9 Obesity, unspecified; Z79.899 Other long term (current) drug therapy

== ENCOUNTER → 2023-01-10 | Outpatient (REF) | payer MEDICARE, MEDICAID ==
[2023-01-10 13:00] LABS: HEMATOCRIT 35.5 % (36.0-47.0); HEMOGLOBIN 11.4 g/dl (12.0-15.5); MEAN CORPUSCULAR HEMOGLOBIN 30.4 pg (27.0-33.0); MEAN CORPUSCULAR HGB CONC 32.1 g/dl (32.0-36.5); MEAN CORPUSCULAR VOLUME 94.7 fl (80.0-96.0); PLATELET COUNT, AUTOMATED 259 10^3/uL (150-450); RED BLOOD COUNT 3.75 10^6/uL (4.00-5.40)
[2023-01-10 13:35] LABS: PERCENT SATURATION 16.6 % (13.2-45.0)
[2023-01-10 13:37] LABS: FERRITIN 40.1 NG/ML (7.3-270.7)
== END ==
LOC: M SFHCADAM 07:32
PROVIDERS: ATTEND Physician Assistant
DX: D50.9 Iron deficiency anemia, unspecified (principal)

== ENCOUNTER → 2023-02-28 | Outpatient (REF) | payer MEDICARE, MEDICAID | LOC: M SFHCWAGY 09:47 | PROVIDERS: ATTEND Nurse Practitioner Family | DX: Z12.4 Encounter for screening for malignant neoplasm of cervix (principal) | CPT/HCPCS: 87624; G0123 ==

== ENCOUNTER → 2023-05-27 | Outpatient (REF) | payer MEDICARE, MEDICAID ==
[2023-05-27 14:10] LABS: BASO % 0.5 % (0.0-1.0); EOS # 0.2 10^3/uL (0.0-0.5); EOS % 1.9 % (0.0-3.0); HEMATOCRIT 37.4 % (36.0-47.0); HEMOGLOBIN 12.3 g/dl (12.0-15.5); LYMPH # 2.2 10^3/uL (1.5-5.0); LYMPH % 26.8 % (24.0-44.0); MEAN CORPUSCULAR HEMOGLOBIN 30.8 pg (27.0-33.0); MEAN CORPUSCULAR HGB CONC 32.9 g/dl (32.0-36.5); MEAN CORPUSCULAR VOLUME 93.5 fl (80.0-96.0); MONO # 0.5 10^3/uL (0.0-0.8); NEUTROPHILS # 5.2 10^3/uL (1.5-8.5); NEUTROPHILS % 64.6 % (36.0-66.0); PLATELET COUNT, AUTOMATED 278 10^3/uL (150-450); WHITE BLOOD COUNT 8.1 10^3/uL (4.0-10.0)
[2023-05-27 14:40] LABS: HEMOGLOBIN A1c 5.3 % (4.0-6.0); THYROID STIMULATING HORMONE 5.127 uIU/ML (0.55-4.78)
[2023-05-27 14:41] LABS: FERRITIN 63.2 NG/ML (7.3-270.7); FREE T4 1.03 NG/DL (0.89-1.76); TOTAL IRON BINDING CAPACITY 278 UG/DL (250-425)
[2023-05-27 14:42] LABS: FOLATE > 24.0 NG/ML (>5.4); VITAMIN B12 LEVEL 435 PG/ML (211-911)
[2023-05-27 14:43] LABS: ALBUMIN 3.6 G/DL (3.2-5.2); ALKALINE PHOSPHATASE 105 U/L (46-116); ALT/SGPT 20 U/L (7.0-40); AST/SGOT 11 U/L (<34); BILIRUBIN,TOTAL 0.4 MG/DL (0.3-1.2); BLOOD UREA NITROGEN 13 MG/DL (9-23); CALCIUM LEVEL 8.8 MG/DL (8.5-10.1); CARBON DIOXIDE LEVEL 28 MMOL/L (20-31); CHLORIDE LEVEL 105 MMOL/L (98-107); CHOLESTEROL LEVEL 153 MG/DL (<200); CHOLESTEROL RISK RATIO 3.81 (<5); CREATININE FOR GFR 0.75 MG/DL (0.55-1.30); GLOMERULAR FILTRATION RATE > 60.0 (>58); GLUCOSE, FASTING 97 MG/DL (60-100); HDL CHOLESTEROL 40.1 MG/DL (>40); LDL CHOLESTEROL 91.1 MG/DL (<100); NON-HDL-C 112.9 MG/DL; POTASSIUM SERUM 4.1 MMOL/L (3.5-5.1); SODIUM LEVEL 139 MMOL/L (136-145); TOTAL PROTEIN 6.7 G/DL (5.7-8.2); TRIGLYCERIDES LEVEL 109 MG/DL (<150)
[2023-05-27 14:44] LABS: IRON (FE) 52 UG/DL (50-170); PERCENT SATURATION 18.7 % (13.2-45.0)
== END ==
LOC: M SFHCADAM 08:41
PROVIDERS: ATTEND Physician Assistant
DX: I11.9 Hypertensive heart disease without heart failure (principal); D50.9 Iron deficiency anemia, unspecified; E03.9 Hypothyroidism, unspecified; R73.01 Impaired fasting glucose; Z13.220 Encounter for screening for lipoid disorders; Z28.21 Immunization not carried out because of patient refusal

== ENCOUNTER → 2023-06-10 | Outpatient (REF) | payer MEDICARE, MEDICAID, OTHER | LOC: M LAB REF 16:15 | PROVIDERS: ATTEND Otolaryngology | DX: H60.8X1 Other otitis externa, right ear (principal) ==

== ENCOUNTER → 2023-06-14 | Outpatient (REF) | payer MEDICARE, MEDICAID, OTHER ==
[2023-06-14 14:40] LABS: CREATININE, URINE 86.7 MG/DL; MALB URINE SIEMENS < 3.0 MG/L; MAU/CREAT RATIO 3.4 MCG/MG (0.0-30.0)
== END ==
LOC: M SFHCADAM 12:28
PROVIDERS: ATTEND Physician Assistant
DX: I11.9 Hypertensive heart disease without heart failure (principal); R73.01 Impaired fasting glucose; Z13.220 Encounter for screening for lipoid disorders; E03.9 Hypothyroidism, unspecified

== ENCOUNTER → 2023-07-13 | Outpatient (CLI) | payer MEDICARE, MEDICAID | LOC: M PLAIMG 07:46 | PROVIDERS: ATTEND Nurse Practitioner Family | DX: R22.2 Localized swelling, mass and lump, trunk (principal) ==

== ENCOUNTER → 2023-07-20 | Outpatient (CLI) | payer MEDICARE, MEDICAID ==
[~2023-07-20] MED LIST changes: -GASTROGRAFIN SOLUTION 30ML (Q9963) As Ordered ONE; -ISOVUE-370 76% 100ML VIAL As Ordered ONE; +ISOVUE-370 76% 100ML VIAL ONE
== END ==
LOC: M PLAIMG 08:48
PROVIDERS: ATTEND Nurse Practitioner Family
DX: R22.2 Localized swelling, mass and lump, trunk (principal)
CPT/HCPCS: 71260; Q9967

== ENCOUNTER → 2023-08-23 | Outpatient (CLI) | payer MEDICARE, MEDICAID | LOC: M WHC 07:42 | PROVIDERS: ATTEND Nurse Practitioner Family | DX: Z12.31 Encounter for screening mammogram for malignant neoplasm of breast (principal); N60.21 Fibroadenosis of right breast; N60.22 Fibroadenosis of left breast; Z80.3 Family history of malignant neoplasm of breast | CPT/HCPCS: 77066; G0279 ==

== ENCOUNTER → 2023-11-26 | Outpatient (REF) | payer MEDICARE, MEDICAID | LOC: M LAB REF 19:36 | PROVIDERS: ATTEND Physician Assistant | DX: N30.01 Acute cystitis with hematuria (principal) ==

== ENCOUNTER → 2023-12-05 | Outpatient (CLI) | payer MEDICARE, MEDICAID | LOC: M PLALAB 08:25 | PROVIDERS: ATTEND Physician Assistant | DX: I11.9 Hypertensive heart disease without heart failure (principal); R73.01 Impaired fasting glucose; D50.9 Iron deficiency anemia, unspecified; Z13.220 Encounter for screening for lipoid disorders; Z28.21 Immunization not carried out because of patient refusal; E03.9 Hypothyroidism, unspecified ==

== ENCOUNTER → 2023-12-06 | Outpatient (REF) | payer MEDICARE, MEDICAID | LOC: M SFHCADAM 09:24 | PROVIDERS: ATTEND Physician Assistant | DX: N30.00 Acute cystitis without hematuria (principal) ==

== ENCOUNTER → 2023-12-14 | Outpatient (REF) | payer MEDICARE, MEDICAID ==
[2023-12-14 14:37] LABS: ALBUMIN 3.6 G/DL (3.2-5.2); ALKALINE PHOSPHATASE 111 U/L (46-116); ALT/SGPT 27 U/L (7.0-40); AST/SGOT 15 U/L (<34); BILIRUBIN,TOTAL 0.4 MG/DL (0.3-1.2); BLOOD UREA NITROGEN 12 MG/DL (9-23); CALCIUM LEVEL 9.1 MG/DL (8.5-10.1); CARBON DIOXIDE LEVEL 27 MMOL/L (20-31); CHLORIDE LEVEL 106 MMOL/L (98-107); CREATININE FOR GFR 0.76 MG/DL (0.55-1.30); GLOMERULAR FILTRATION RATE > 60.0 (>58); GLUCOSE, FASTING 90 MG/DL (60-100); POTASSIUM SERUM 4.4 MMOL/L (3.5-5.1); SODIUM LEVEL 138 MMOL/L (136-145); TOTAL PROTEIN 6.8 G/DL (5.7-8.2)
[2023-12-14 14:38] LABS: FREE T4 1.06 NG/DL (0.89-1.76); THYROID STIMULATING HORMONE 3.275 uIU/ML (0.55-4.78)
== END ==
LOC: M SFHCADAM 08:35
PROVIDERS: ATTEND Physician Assistant
DX: I10 Essential (primary) hypertension (principal); E03.9 Hypothyroidism, unspecified; N30.00 Acute cystitis without hematuria

== ENCOUNTER → 2024-03-12 | Outpatient (REF) | payer MEDICARE, MEDICAID | LOC: M SFHCWAGY 12:57 | PROVIDERS: ATTEND Nurse Practitioner Family | DX: N73.9 Female pelvic inflammatory disease, unspecified (principal) ==

== ENCOUNTER → 2024-05-02 | Outpatient (CLI) | payer MEDICARE, MEDICAID | LOC: M PLAIMG 08:30 | PROVIDERS: ATTEND Surgery | DX: D17.1 Benign lipomatous neoplasm of skin and subcutaneous tissue of trunk (principal) | CPT/HCPCS: 71260; Q9967 ==

== ENCOUNTER → 2024-05-31 | Outpatient (REF) | payer MEDICARE, MEDICAID ==
[2024-05-31 14:09] LABS: BASO % 0.4 % (0.0-1.0); EOS # 0.2 10^3/uL (0.0-0.5); EOS % 1.8 % (0.0-3.0); HEMATOCRIT 35.7 % (36.0-47.0); HEMOGLOBIN 11.8 g/dl (12.0-15.5); LYMPH # 1.9 10^3/uL (1.5-5.0); LYMPH % 23.4 % (24.0-44.0); MEAN CORPUSCULAR HEMOGLOBIN 30.7 pg (27.0-33.0); MEAN CORPUSCULAR HGB CONC 33.1 g/dl (32.0-36.5); MONO # 0.4 10^3/uL (0.0-0.8); MONO % 5.4 % (2.0-8.0); NEUTROPHILS # 5.6 10^3/uL (1.5-8.5); NEUTROPHILS % 68.6 % (36.0-66.0); PLATELET COUNT, AUTOMATED 255 10^3/uL (150-450); RED BLOOD COUNT 3.84 10^6/uL (4.00-5.40); WHITE BLOOD COUNT 8.2 10^3/uL (4.0-10.0)
[2024-05-31 14:16] LABS: ALBUMIN 3.6 G/DL (3.2-5.2); ALKALINE PHOSPHATASE 106 U/L (35-104); ALT/SGPT 21 U/L (7.0-40); AST/SGOT 11 U/L (<34); BILIRUBIN,TOTAL 0.4 MG/DL (0.3-1.2); BLOOD UREA NITROGEN 15 MG/DL (9-23); CALCIUM LEVEL 9.5 MG/DL (8.5-10.1); CARBON DIOXIDE LEVEL 28 MMOL/L (20-31); CHLORIDE LEVEL 104 MMOL/L (98-107); CHOLESTEROL LEVEL 148 MG/DL (<200); CHOLESTEROL RISK RATIO 3.59 (<5); CREATININE FOR GFR 0.81 MG/DL (0.55-1.30); GLOMERULAR FILTRATION RATE > 60.0 (>51); GLUCOSE, FASTING 104 MG/DL (60-100); HDL CHOLESTEROL 41.2 MG/DL (>40); NON-HDL-C 106.8 MG/DL; POTASSIUM SERUM 4.4 MMOL/L (3.5-5.1); SODIUM LEVEL 139 MMOL/L (136-145); TOTAL PROTEIN 7.5 G/DL (5.7-8.2); TRIGLYCERIDES LEVEL 84 MG/DL (<150)
[2024-05-31 14:17] LABS: FREE T4 1.08 NG/DL (0.89-1.76)
[2024-05-31 14:18] LABS: THYROID STIMULATING HORMONE 5.991 uIU/ML (0.55-4.78)
[2024-05-31 14:42] LABS: CREATININE, URINE 68.9 MG/DL; MALB URINE SIEMENS < 3.0 MG/L
[2024-05-31 15:41] LABS: HEMOGLOBIN A1c 5.2 % (4.0-6.0)
== END ==
LOC: M SFHCADAM 07:55
PROVIDERS: ATTEND Physician Assistant
DX: E03.9 Hypothyroidism, unspecified (principal); I10 Essential (primary) hypertension; Z13.220 Encounter for screening for lipoid disorders; R73.01 Impaired fasting glucose

== ENCOUNTER → 2024-07-20 | Outpatient (CLI) | payer MEDICARE, MEDICAID | LOC: M RAD 09:33 | PROVIDERS: ATTEND Physician Assistant | DX: R16.2 Hepatomegaly with splenomegaly, not elsewhere classified (principal); K76.0 Fatty (change of) liver, not elsewhere classified ==

== ENCOUNTER → 2024-08-28 | Outpatient (CLI) | payer MEDICARE, MEDICAID | LOC: M WHC 07:01 | PROVIDERS: ATTEND Nurse Practitioner Family | DX: Z12.31 Encounter for screening mammogram for malignant neoplasm of breast (principal); R92.323 Mammographic fibroglandular density, bilateral breasts; Z80.3 Family history of malignant neoplasm of breast ==

== ENCOUNTER → 2024-09-05 | Outpatient (REF) | payer MEDICARE, MEDICAID ==
[2024-09-05 13:16] LABS: BASO % 0.4 % (0.0-1.0); EOS # 0.2 10^3/uL (0.0-0.5); EOS % 2.1 % (0.0-3.0); HEMATOCRIT 36.7 % (36.0-47.0); HEMOGLOBIN 12.1 g/dl (12.0-15.5); LYMPH # 2.1 10^3/uL (1.5-5.0); LYMPH % 24.8 % (24.0-44.0); MEAN CORPUSCULAR HEMOGLOBIN 30.9 pg (27.0-33.0); MEAN CORPUSCULAR VOLUME 93.6 fl (80.0-96.0); MONO # 0.5 10^3/uL (0.0-0.8); MONO % 5.6 % (2.0-8.0); NEUTROPHILS # 5.7 10^3/uL (1.5-8.5); NEUTROPHILS % 66.9 % (36.0-66.0); PLATELET COUNT, AUTOMATED 250 10^3/uL (150-450); RED BLOOD COUNT 3.92 10^6/uL (4.00-5.40); WHITE BLOOD COUNT 8.4 10^3/uL (4.0-10.0)
[2024-09-05 13:45] LABS: IRON (FE) 114 UG/DL (50-170)
[2024-09-05 13:46] LABS: ALBUMIN 3.6 G/DL (3.2-5.2); ALKALINE PHOSPHATASE 103 U/L (35-104); ALT/SGPT 25 U/L (7.0-40); AST/SGOT 17 U/L (<34); BILIRUBIN,TOTAL 0.5 MG/DL (0.3-1.2); BLOOD UREA NITROGEN 9 MG/DL (9-23); CALCIUM LEVEL 8.7 MG/DL (8.5-10.1); CARBON DIOXIDE LEVEL 28 MMOL/L (20-31); CHLORIDE LEVEL 105 MMOL/L (98-107); CREATININE FOR GFR 0.77 MG/DL (0.55-1.30); GLOMERULAR FILTRATION RATE > 90.0 (>51); GLUCOSE, FASTING 107 MG/DL (60-100); PERCENT SATURATION 39.7 % (13.2-45.0); POTASSIUM SERUM 4.3 MMOL/L (3.5-5.1); SODIUM LEVEL 138 MMOL/L (136-145); TOTAL IRON BINDING CAPACITY 287 UG/DL (250-425); TOTAL PROTEIN 6.9 G/DL (5.7-8.2)
[2024-09-05 13:47] LABS: FERRITIN 50.5 NG/ML (7.3-270.7)
== END ==
LOC: M SFHCADAM 07:57
PROVIDERS: ATTEND Physician Assistant
DX: R16.1 Splenomegaly, not elsewhere classified (principal); K76.0 Fatty (change of) liver, not elsewhere classified; D64.9 Anemia, unspecified

== ENCOUNTER → 2025-03-13 | Outpatient (REF) | payer MEDICARE, MEDICAID ==
[2025-03-13 14:10] LABS: BASO # 0.0 10^3/uL (0.0-0.2); BASO % 0.4 % (0.0-1.0); EOS # 0.1 10^3/uL (0.0-0.5); EOS % 1.7 % (0.0-3.0); LYMPH # 1.8 10^3/uL (1.5-5.0); LYMPH % 26.2 % (24.0-44.0); MONO # 0.5 10^3/uL (0.0-0.8); MONO % 6.7 % (2.0-8.0); NEUTROPHILS # 4.5 10^3/uL (1.5-8.5); NEUTROPHILS % 64.6 % (36.0-66.0); PLATELET COUNT, AUTOMATED 277 10^3/uL (150-450)
[2025-03-13 14:21] LABS: ALT/SGPT 22 U/L (7.0-40); AST/SGOT 18 U/L (<34); CALCIUM LEVEL 9.1 MG/DL (8.5-10.1); CARBON DIOXIDE LEVEL 25 MMOL/L (20-31); CHLORIDE LEVEL 103 MMOL/L (98-107); CHOLESTEROL LEVEL 152 MG/DL (<200); CHOLESTEROL RISK RATIO 3.40 (<5); CREATININE FOR GFR 0.79 MG/DL (0.55-1.30); FREE T4 1.16 NG/DL (0.89-1.76); GLOMERULAR FILTRATION RATE > 90.0 (>51); LDL CHOLESTEROL 91.1 MG/DL (<100); NON-HDL-C 107.3 MG/DL; POTASSIUM SERUM 4.5 MMOL/L (3.5-5.1); SODIUM LEVEL 139 MMOL/L (136-145); TRIGLYCERIDES LEVEL 81 MG/DL (<150)
== END ==
LOC: M SFHCADAM 08:04
PROVIDERS: ATTEND Physician Assistant
DX: I10 Essential (primary) hypertension (principal); E03.9 Hypothyroidism, unspecified; K76.0 Fatty (change of) liver, not elsewhere classified; R16.1 Splenomegaly, not elsewhere classified; D50.9 Iron deficiency anemia, unspecified

== ENCOUNTER → 2025-05-01 | Outpatient (CLI) | payer MEDICARE, MEDICAID ==
[~2025-05-01] MED LIST changes: +ISOVUE-370 76% 100 ML VIAL ONE; -ISOVUE-370 76% 100ML VIAL ONE
== END ==
LOC: M PLAIMG 08:49
PROVIDERS: ATTEND Nurse Practitioner Family
DX: D17.1 Benign lipomatous neoplasm of skin and subcutaneous tissue of trunk (principal)
CPT/HCPCS: 71260; Q9967